=== PATIENT | female | born 1950 | race Caucasian/White ===

== ENCOUNTER 2016-10-09 08:26 | Emergency (ER) | payer MEDICARE, BC ==
[2016-10-09] MEDS ORDERED: ONDANSETRON 4 MG VIAL ONE (09:32)
[2016-10-09] MEDS ORDERED: SODIUM CHLORIDE 0.9% 1,000 ML ONE (09:32)
== END 2016-10-09 15:27 | disposition home or self-care (01) ==
LOC: ER 08:26
DX: K27.9 Peptic ulcer, site unspecified, unspecified as acute or chronic, without hemorrhage or perforation (principal); B96.81 Helicobacter pylori [H. pylori] as the cause of diseases classified elsewhere; R11.2 Nausea with vomiting, unspecified
CPT/HCPCS: 36415 ×2; 70450 ×2; 71010 ×2; 74176 ×2; 80053 ×2; 81003 ×2; 82553 ×2; 83605 ×2; 83690 ×2; 84484 ×2; 85025 ×2; 86677 ×2; 87040 ×2; 93005 ×2; 96360 ×2; 96361 ×2; 99284; J2405

== ENCOUNTER 2016-10-10 07:49 | Emergency (ER) | payer MEDICARE, BC | END 2016-10-10 10:03 | disposition home or self-care (01) | LOC: ER 07:49 | CPT/HCPCS: 36415; 80053; 81003; 83690; 85025 ==

== ENCOUNTER 2016-11-03 10:45 | Observation (INO) | payer MEDICARE, BC ==
[~2016-11-03] VITALS: Ht 162.6 cm; Wt 75.3 kg
[2016-11-03] MEDS ORDERED: DILAUDID 1 MG/ML AMP IV PRN (10:55)
[2016-11-03] MEDS ORDERED: SALINE FLUSH 10 ML FLUSH PRN (10:55)
[2016-11-03] MEDS ORDERED: ONDANSETRON 4 MG VIAL IV PUSH PRN (10:55)
[2016-11-03] MEDS ORDERED: LACTULOSE SOLN 20GM/30ML UDC PO PRN (10:55)
[2016-11-03] MEDS ORDERED: PROMETHAZINE 25 MG/ML VIAL IV PRN (10:55)
[2016-11-03] MEDS ORDERED: ALPRAZOLAM 0.25 MG TAB PO PRN (10:55)
[2016-11-03] MEDS ORDERED: ALU/MAG/SIM 30 ML UDC PO PRN (10:55)
[2016-11-03] MEDS: DICYCLOMINE 10 MG CAP PO SCH ×2 (11:00→15:42)
[2016-11-03 13:17] VITALS: BP_SYST 131; RESP 16; TEMP 98.4
[2016-11-03 13:18] VITALS: Ht 162.6 cm; Wt 75.3 kg
[2016-11-03] MEDS ORDERED: SODIUM CHLORIDE 0.9% 1,000 ML IV SCH (13:35)
[2016-11-03] MEDS: FLUCONAZOLE 100 MG in SODIUM CHLORIDE 0.9% 50 ML IV SCH (15:29)
[2016-11-03] MEDS: ACETAMINOPHEN 325 MG TAB PO PRN ×2 (15:31→20:25)
[2016-11-03] MEDS ORDERED: MISSING DOSE XX ONE (15:45)
[2016-11-03] MEDS: PANTOPRAZOLE 40 MG VIAL IV SCH (17:26)
[2016-11-03 19:18] VITALS: BP_SYST 114
[2016-11-03 19:19] VITALS: RESP 16; TEMP 98.2
[2016-11-03] MEDS ORDERED: DIPHENHYDRAMINE 25 MG CAP PO PRN (19:20)
[2016-11-03] MEDS: SALINE FLUSH 10 ML FLUSH SCH (20:27)
[2016-11-03 22:59] VITALS: BP_SYST 99; TEMP 98.2
[2016-11-03 23:00] VITALS: RESP 16
[2016-11-04 03:12] VITALS: BP_SYST 126; TEMP 98.2
[2016-11-04 03:13] VITALS: RESP 16
[2016-11-04] MEDS: ACETAMINOPHEN 325 MG TAB PO PRN ×2 (05:56→13:46)
[2016-11-04] MEDS ORDERED: SODIUM CHLORIDE 0.9% FLUSH BAG 500 ML IV SCH (06:00)
[2016-11-04] MEDS ORDERED: MISSING DOSE XX ONE ×2 (06:25→08:50)
[2016-11-04] MEDS: DICYCLOMINE 10 MG CAP PO SCH ×2 (06:34→10:43)
[2016-11-04 07:35] VITALS: BP_SYST 135; RESP 16; TEMP 97.4
[2016-11-04] MEDS: SALINE FLUSH 10 ML FLUSH SCH (08:53)
[2016-11-04] MEDS: FLUCONAZOLE 100 MG in SODIUM CHLORIDE 0.9% 50 ML IV SCH (08:54)
[2016-11-04] MEDS ORDERED: ENOXAPARIN 30 MG/0.3 ML SYR SUBQ SCH (09:00)
[2016-11-04] MEDS: PANTOPRAZOLE 40 MG VIAL IV SCH (09:11)
[2016-11-04 12:46] VITALS: BP_SYST 139; RESP 16; TEMP 98
[2016-11-04 13:38] VITALS: BP_SYST 139; RESP 16; TEMP 98
[2016-11-06] MEDS ORDERED: PANTOPRAZOLE 40 MG TAB PO SCH (07:00)
== END 2016-11-04 13:06 | disposition home or self-care (01) ==
LOC: ENRESERVDT → ENRESERVTM → 5THE 12:49 → ENPENDDIS 12:49
PROVIDERS: ADMIT Internal Medicine Nephrology; ATTEND Internal Medicine Nephrology
DX: E86.0 Dehydration (principal); R11.2 Nausea with vomiting, unspecified; M19.90 Unspecified osteoarthritis, unspecified site; R07.89 Other chest pain
CPT/HCPCS: 80053; 81003; 82150; 83690; 85025; 85610; 85652; 85730; 86038; 86141; 86160; 87493; 97799; G0378; 86225; 86235